=== PATIENT | female | born 2000 | race Caucasian/White ===

== ENCOUNTER → 2021-01-26 | Emergency (ER) | payer OTHER ==
[~2021-01-26] VITALS: Ht 160 cm; Wt 56.7 kg
[~2021-01-26] MED LIST: ALBUTEROL2.5 MG/3 M IH; PRENATAL CAPLE1 EACH PO; ZITHROMAX500 MG PO
== END | disposition home or self-care (01) ==
LOC: ER 01:06
DX: A49.3 Mycoplasma infection, unspecified site (principal); Z3A.31 31 weeks gestation of pregnancy; Z03.818 Encounter for observation for suspected exposure to other biological agents ruled out

== ENCOUNTER 2021-03-21 11:00 | Inpatient (IN) | payer OTHER ==
[~2021-03-21] VITALS: Ht 160 cm; Wt 59.9 kg
[2021-03-21] MEDS ORDERED: IRON325 MG PO (11:16)
[2021-03-21] MEDS ORDERED: PRENATAL CAPLE1 EAC1 PO (11:16)
== END 2021-03-23 16:15 | disposition home or self-care (01) | DRG 807 ==
LOC: LDR 11:00 → OB/GYN 19:50
PROVIDERS: ADMIT Obstetrics & Gynecology; ATTEND Obstetrics & Gynecology
PROC: 10E0XZZ Delivery of Products of Conception, External Approach (ICD-10-PCS; principal; 2021-03-21)
PROC: 4A1HXFZ Monitoring of Products of Conception, Cardiac Rhythm, External Approach (ICD-10-PCS; 2021-03-21)
DX: O99.824 Streptococcus B carrier state complicating childbirth (principal); Z37.0 Single live birth; Z3A.39 39 weeks gestation of pregnancy